=== PATIENT | female | born 1995 | race Caucasian/White ===

== ENCOUNTER 2022-06-02 21:18 | Inpatient (IN) | payer OTHER, SELFPAY ==
--- NOTE | ~2022-06-02 | US_ITS ---
EXAMINATION: US RETROPERITONEAL LIMITED (RENAL ONLY) CLINICAL INFORMATION: Right-sided flank pain. Fullness of the bilateral renal pelvises. COMPARISON: Previous CT of the abdomen and pelvis from earlier the same day TECHNIQUE: Grayscale and color imaging of the kidneys FINDINGS: RIGHT KIDNEY: 11.7 x 5.3 x 6.6 cm (SAG x AP x TRV). The kidney is normal in size, contour, and echogenicity. Renal cortical thickness is normal. No calculi or focal parenchymal lesions. No hydronephrosis. LEFT KIDNEY: 13.1 x 5.4 x 5.5 cm (SAG x AP x TRV). The kidney is normal in size, contour, and echogenicity. Renal cortical thickness is normal. No calculi or focal parenchymal lesions. No hydronephrosis. US/US renal BI IMPRESSION: Normal renal ultrasound.
--- NOTE | ~2022-06-02 | CT_ITS ---
EXAMINATION: CT ABDOMEN AND PELVIS WITHOUT CONTRAST CLINICAL INFORMATION: Diffuse abdominal pain COMPARISON: None TECHNIQUE: Multidetector volumetric imaging was performed from the superior aspect of the liver through the pubic symphysis. Sagittal and coronal reformatted images were obtained on the technologist's workstation. This CT examination was performed using dose optimization techniques as appropriate, variously including the following: *Automated exposure control *Adjustment of mA and/or kV according to patient size (this includes techniques or standardized protocols for targeted exams where dose is matched to indication/reason for exam; i.e. extremities or head) *Use of iterative reconstruction technique DLP: 658 mGy-cm FINDINGS: LUNG BASES: The visualized lung bases are unremarkable. LIVER, GALLBLADDER, AND BILIARY TREE: Focal fatty infiltration is noted near the falciform ligament. No biliary ductal dilatation is present. The gallbladder is unremarkable with no evidence of radiopaque gallstones, gallbladder wall thickening, or obvious pericholecystic inflammatory changes. PANCREAS: Unremarkable. SPLEEN: Borderline enlarged. ADRENAL GLANDS: Unremarkable. KIDNEYS AND URETERS: There is mild fullness of the bilateral renal pelvises, with no obstructing calculus seen. BLADDER: Partially distended with mild diffuse mural prominence. GASTROINTESTINAL TRACT: Suture line is present along the stomach. No evidence of bowel obstruction. No significant bowel wall thickening is seen. The appendix is unremarkable. No free fluid or free air is seen. ABDOMINAL WALL: No significant hernia is appreciated. LYMPH NODES: No significant lymphadenopathy is seen, though assessment is limited in the absence of intravenous contrast. VASCULAR: Unremarkable. PELVIC VISCERA: Unremarkable. OSSEOUS STRUCTURES: Mild endplate osteophytes in the lower lumbar spine. CT/CT abdomen pelvis wo IV con IMPRESSION: 1. Mild fullness of the bilateral renal pelvises, of uncertain clinical significance with no obstructing calculus seen. Bladder wall is mildly prominent, and cystitis cannot be excluded. Correlation with urinalysis is recommended. 2. Borderline splenomegaly. 3. No acute abnormality of the bowel.
--- NOTE | 2022-06-02 07:26 | ECG_ITS ---
Test Reason : cx pain /dizzyness Blood Pressure : / mmHG Vent. Rate : 105 BPM Atrial Rate : 105 BPM P-R Int : 142 ms QRS Dur : 068 ms QT Int : 336 ms P-R-T Axes : 056 041 032 degrees QTc Int : 444 ms Sinus tachycardia Otherwise normal ECG No previous ECGs available Referred By: Lucia Sandoval Electronically Signed By:VINNIE ANDERSON
[2022-06-02 22:37] VITALS: BP 140/80; PULSE 110; RESP 15; TEMP 38.3; O2SAT 100; BMI 30.7
[2022-06-03] VITALS (11 sets, daily range): BP systolic 112–133; BP diastolic 61–72; PULSE 84–106; RESP 14–22; TEMP 36.3–37.7; O2SAT 97–100
[2022-06-03 00:15] LABS: Hematocrit 28.1 % (37.0-47.0); Hemoglobin 8.1 g/dl (12.0-16.0); Mean Corpuscular HGB Conc 28.8 g/dl (31.0-35.0); Mean Corpuscular Volume 72.8 fL (80.0-98.0); Mean Platelet Volume 9.7 fL (9.4-12.3); Platelet Count 220 X10*3/uL (160-400); Red Blood Count 3.86 X10*6/uL (4.20-5.50); Red Cell Distribution Width 16.8 % (11.0-16.0); White Blood Count 10.4 X10*3/uL (4.8-10.8)
[2022-06-03 00:30] LABS: Alanine Aminotransferase 14 U/L (0-31); Alkaline Phosphatase 88 U/L (39-117); Anion Gap 16 (12-20); Aspartate Amino Transferase 18 U/L (5-31); Bilirubin Total 0.9 mg/dL (0.0-1.0); Blood Urea Nitrogen 7 mg/dL (9-16); Calcium 8.9 mg/dL (8.4-10.2); Carbon Dioxide 25 mmol/L (22-29); Chloride 102 mmol/L (96-108); Creatinine Clr Calc Pharmacy 121.3; Estimated Glomerular Filt Rate > 60; Glucose Random 85 mg/dL (60-115); Potassium 3.9 mmol/L (3.3-5.1); Sodium 139 mmol/L (135-145); Total Protein 6.4 g/dL (6.5-8.0)
--- NOTE | 2022-06-03 03:54 | ED.GENADULT ---
HPI - General Adult General Chief complaint: General Medical Stated complaint: abd pain Time Seen by Provider: 06/03/22 03:44 Source: patient Mode of arrival: ambulatory Limitations: no limitations History of Present Illness HPI narrative: Patient comes to the emergency room complaining of diffuse abdominal pain. Patient states it is worse in the left lower quadrant, radiating towards the back. Patient states she has had kidney stones in the past, states this feels different. Denies dysuria or hematuria. On arrival to the ED patient had a fever 100.9. Patient also complaining of diffuse body aches, fatigue, and generalized malaise. Patient denies chest pain. Patient states that she vomited couple of times, no diarrhea. Patient states that last week she had huge blood clots, she is not sure if she was and is caring or if this was a very heavy menstrual Related Data Allergies Allergy/AdvReac Type Severity Reaction Status Date / Time No Known Allergies Allergy Verified 06/02/22 22:41 Review of Systems Review of Systems: Constitutional : No Weight loss, complaining of fever, chills, fatigue and generalized malaise ENT/Mouth : No Hearing loss, No Ear Pain, No Nasal Congestion, No Sinus Pain, No Hoarseness, No sore throat, No Rhinorrhea, No Swallowing Difficulty Eyes: No Eye Pain, No Swelling, No Redness, No Foreign Body, No Discharge, No Vision Changes Cardiovascular : No Chest Pain, No SOB, No Dyspnea on Exertion, No Orthopnea, No Edema, No Palpitations Respiratory : No Cough, No Sputum, No Wheezing, No Smoke Exposure, No Dyspnea Gastrointestinal : Complaining of nausea and vomiting No Diarrhea, No Constipation, complaining of diffuse abdominal pain, worse in the left lower quadrant radiating towards the back Genitourinary : no irregular bleeding, No Dysuria, No Urinary Frequency, No Hematuria, No Urinary Incontinence, No Urgency, No Flank Pain, No Urinary Flow Changes, No Hesitancy Musculoskeletal : No joint pain, No Myalgias, No Joint Swelling Skin : No Skin Lesions, No rash Neuro : No Weakness, No Numbness, No Paresthesias, No Loss of Consciousness, No Dizziness, No Headache Psych : No Anxiety/Panic, No Depression, No SI/HI/AH/VH, No Social Issues, Heme/Lymph: No Bruising, No Bleeding,No Lymphadenopathy Endocrine : No Polyuria, No Polydipsia, No Temperature Intolerance PMFSH Past Medical History Medical History (Updated 06/03/22 @ 05:39 by Lucia Sandoval MD) Kidney stones Surgical History (Updated 06/03/22 @ 03:57 by Lucia Sandoval MD) H/O gastric bypass Social History Social History Advance Directives: No Advance Directives Information Provided: Yes Physical Exam ED Vital Signs: Vital Signs - 24 hr 06/02/22 22:37 06/03/22 02:06 06/03/22 05:18 Temperature 100.9 F H 100 F Pulse Rate 110 H 106 H 99 Respiratory Rate 15 16 16 Blood Pressure 140/80 H 133/72 124/70 Pulse Oximetry 100 98 100 Oxygen Delivery Method Room Air Room Air Room Air BMI result Body Mass Index 30.7 Const Other: Appearance: Alert. Oriented X3. Eyes: Pupils equal, round and reactive to light. ENT: Pharynx normal. Neck: Normal inspection. Neck supple. No lymph nodes noted. No crepitus CVS: Normal heart rate and rhythm. Pulses normal. Normal S1 and S2 Respiratory: No respiratory distress. Breath sounds normal. No Wheezing. No rales Abdomen: Soft , diffuse pain to palpation in all the quadrants, worse in the left lower quadrant and positive CVA tenderness on the left Skin: Skin warm and dry. Patient seems pale Normal skin turgor. Extremities: No lower extremity edema. No Lacerations. No Rash Neuro: Oriented X 3. No motor deficit. No sensory deficit. Moving all extremities. No slurred speech. CN 2 through 12 grossly intact Psych: calm, cooperative, normal affect Course Course Course Narrative: Patient has a fever. White blood cell count 10.4 lactic acid and blood cultures are pending. Patient is receiving IV fluids, Zofran, morphine. Urinalysis, LFTs, lipase hCG CT scan pending At this time, 518, the patient's urine returned. Patient has a urinary tract infection. Patient is receiving IV fluids based on ideal weight of 55 kg, patient is obese. Patient also being treated with Levaquin. CT scan pending. Clinically, patient has pyelonephritis. Patient's white blood cell count within normal limits, lactic acid normal, blood pressure normal, sepsis not suspected. It was noted that patient has a hemoglobin of 8.1 patient states that she has been feeling very tired, short of breath, dizzy, not herself since she had that heavy menstrual period. At this time, patient has no vaginal bleeding. Since patient is fairly symptomatic. Patient would likely benefit from 1 unit of blood. Patient agrees and signed a consent. I discussed the patient with Dr. Danielle, pt being admitted Medical Decision Making Lab Data Result diagrams: 06/03/22 00:08 06/03/22 00:08 Labs: Lab Results 06/03/22 06/03/22 06/03/22 Range/Units 00:08 00:08 03:59 WBC 10.4 (4.8-10.8) X10*3/uL RBC 3.86 L (4.20-5.50) X10*6/uL Hgb 8.1 L (12.0-16.0) g/dl Hct 28.1 L (37.0-47.0) % MCV 72.8 L (80.0-98.0) fL MCH 21.0 L (27.0-33.0) pg MCHC 28.8 L (31.0-35.0) g/dl RDW 16.8 H (11.0-16.0) % Plt Count 220 (160-400) X10*3/uL MPV 9.7 (9.4-12.3) fL Absolute Nucleated RBC 0.000 (0.0-0.012) X10*3/uL Nucleated RBC % (auto) 0.0 (0.0-0.2) /100WBC Sodium 139 (135-145) mmol/L Potassium 3.9 (3.3-5.1) mmol/L Chloride 102 (96-108) mmol/L Carbon Dioxide 25 (22-29) mmol/L Anion Gap 16 (12-20) BUN 7 L (9-16) mg/dL Creatinine 0.77 (0.5-1.4) mg/dL Estim Creat Clear Calc 121.3 Estimated GFR > 60 Random Glucose 85 (60-115) mg/dL Lactic Acid (0.5-2.0) mmol/L Calcium 8.9 (8.4-10.2) mg/dL Total Bilirubin 0.9 (0.0-1.0) mg/dL Direct Bilirubin 0.4 (0.0-0.5) mg/dL AST 18 (5-31) U/L ALT 14 (0-31) U/L Alkaline Phosphatase 88 (39-117) U/L Total Protein 6.4 L (6.5-8.0) g/dL Albumin 4.0 (3.5-5.0) g/dL Lipase 11 (8-78) U/L Beta HCG, Quant < 2 mIU/mL Urine Color Urine Appearance Urine pH (5.0-9.0) Ur Specific [place] (1.005-1.025) Urine Protein (Neg-Trace) mg/dL Urine Glucose (UA) (Negative) mg/dL Urine Ketones (Negative) mg/dL Urine Blood (Negative) Urine Nitrite (Negative) Ur Leukocyte Esterase (Negative) Urine RBC (0-2) /HPF Urine WBC (0-5) /HPF Ur Squamous Epith Cells (0-2) /HPF Urine Bacteria (None Seen) Hyaline Casts Urine Test COVID-19 ([facility]) Negative (Negative) COVID-19 Clin Com See Note 06/03/22 06/03/22 06/03/22 Range/Units 04:03 04:03 04:03 WBC (4.8-10.8) X10*3/uL RBC (4.20-5.50) X10*6/uL Hgb (12.0-16.0) g/dl Hct (37.0-47.0) % MCV (80.0-98.0) fL MCH (27.0-33.0) pg MCHC (31.0-35.0) g/dl RDW (11.0-16.0) % Plt Count (160-400) X10*3/uL MPV (9.4-12.3) fL Absolute Nucleated RBC (0.0-0.012) X10*3/uL Nucleated RBC % (auto) (0.0-0.2) /100WBC Sodium (135-145) mmol/L Potassium (3.3-5.1) mmol/L Chloride (96-108) mmol/L Carbon Dioxide (22-29) mmol/L Anion Gap (12-20) BUN (9-16) mg/dL Creatinine (0.5-1.4) mg/dL Estim Creat Clear Calc Estimated GFR Random Glucose (60-115) mg/dL Lactic Acid 0.7 (0.5-2.0) mmol/L Calcium (8.4-10.2) mg/dL Total Bilirubin (0.0-1.0) mg/dL Direct Bilirubin (0.0-0.5) mg/dL AST (5-31) U/L ALT (0-31) U/L Alkaline Phosphatase (39-117) U/L Total Protein (6.5-8.0) g/dL Albumin (3.5-5.0) g/dL Lipase (8-78) U/L Beta HCG, Quant mIU/mL Urine Color Yellow Urine Appearance Cloudy Urine pH 6.0 (5.0-9.0) Ur Specific [place] 1.020 (1.005-1.025) Urine Protein 30 (1+) H (Neg-Trace) mg/dL Urine Glucose (UA) Negative (Negative) mg/dL Urine Ketones 40 (Negative) mg/dL Urine Blood Moderate (2+) H (Negative) Urine Nitrite Positive H (Negative) Ur Leukocyte Esterase Large (3+) H (Negative) Urine RBC 6-10 H (0-2) /HPF Urine WBC >50 H (0-5) /HPF Ur Squamous Epith Cells 3-5 (0-2) /HPF Urine Bacteria 3+ (None Seen) Hyaline Casts Not Reportable Urine Test Cancelled COVID-19 ([facility]) (Negative) COVID-19 Clin Com Imaging Data CT scan - abdomen: Radiologist's impression: FINDINGS: LUNG BASES: The visualized lung bases are unremarkable.? LIVER, GALLBLADDER, AND BILIARY TREE: Focal fatty infiltration is noted near the falciform ligament. No biliary ductal dilatation is present. The gallbladder is unremarkable with no evidence of radiopaque gallstones, gallbladder wall thickening, or obvious pericholecystic inflammatory changes.? PANCREAS: Unremarkable.? SPLEEN: Borderline enlarged.? ADRENAL GLANDS: Unremarkable.? KIDNEYS AND URETERS: There is mild fullness of the bilateral renal pelvises, with no obstructing calculus seen. BLADDER: Partially distended with mild diffuse mural prominence.? GASTROINTESTINAL TRACT: Suture line is present along the stomach. No evidence of bowel obstruction. No significant bowel wall thickening is seen. The appendix is unremarkable. No free fluid or free air is seen. ABDOMINAL WALL: No significant hernia is appreciated.? LYMPH NODES: No significant lymphadenopathy is seen, though assessment is limited in the absence of intravenous contrast. VASCULAR: Unremarkable. PELVIC VISCERA: Unremarkable.? OSSEOUS STRUCTURES: Mild endplate osteophytes in the lower lumbar spine.? CT/CT abdomen pelvis wo IV con IMPRESSION: 1.? Mild fullness of the bilateral renal pelvises, of uncertain clinical significance with no obstructing calculus seen. Bladder wall is mildly prominent, and cystitis cannot be excluded. Correlation with urinalysis is recommended. 2.? Borderline splenomegaly. 3.? No acute abnormality of the bowel. ? Critical Care Time Critical Care Time Critical Care Time: Yes Total Critical Care Time: 60 Attestation: I have personally provided critical care time. Time includes review of lab data, radiology results, discussion with consultants, and monitoring for potential decompensation. Intervention performed as documented. Discharge Plan Discharge Clinical Impression: Pyelonephritis, Anemia Patient Disposition: Admitted As Inpatient
[2022-06-03 04:09] LABS: Bilirubin Direct 0.4 mg/dL (0.0-0.5); Lipase 11 U/L (8-78)
[2022-06-03 04:15] LABS: HCG Quantitative < 2 mIU/mL
--- NOTE | 2022-06-03 04:22 | PC.NURSE ---
pt taken to ct.
[2022-06-03 04:27] LABS: Appearance Urine Cloudy; Color Urine Yellow; Glucose Urine UA Negative (Negative); Leukocyte Esterase Urine Large (3+) (Negative); Nitrite Urine Positive (Negative); Urine Blood Moderate (2+) (Negative); Urine Ketones 40 mg/dL (Negative); Urine Protein 30 (1+) mg/dL (Neg-Trace)
[2022-06-03 04:35] LABS: Lactic Acid 0.7 mmol/L (0.5-2.0)
[2022-06-03 04:38] LABS: COVID-19 Test Negative (Negative); IDNOW Serial# 16C4AD1C
[2022-06-03 04:43] LABS: Bacteria Urine 3+ (None Seen); UACC Culture Trigger YES; WBC Urine >50 /HPF (0-5)
--- NOTE | 2022-06-03 05:32 | PC.NURSE ---
consent for transfusion of blood signed by pt. pt is alert and oriented x4.
[2022-06-03] MEDS: ondansetron HCL 4 MG/2 ML VIAL IVPUSH ×3 (05:57→19:51)
[2022-06-03] MEDS: Morphine Sulfate 4 MG/ML CARTRIDGE IVPUSH (05:57)
[2022-06-03] MEDS: 0.9 % Sodium Chloride 2,000 ML 999 ML IVCONT (05:58)
[2022-06-03] MEDS: levoFLOXacin/D5W 500 MG/100 ML PIGGYBACK 100 MG IV (06:09)
--- NOTE | 2022-06-03 06:13 | PM.IMHP ---
History of Present Illness Date of Service: 06/03/22 Chief Complaint: N/V abd pain 26-year-old female with past medical history of gastric sleeve surgery presents the hospital with complaints of right lower abdomen pain radiating to the back, as well as nausea vomiting, urinary frequency. Patient reports her symptoms started the day prior, the pain is sent out of 10, radiating to the groin, associated with significant nausea vomiting, loss of appetite. She has not been able to keep anything down. She has urinary frequency for the past 2 days. She has also experienced heavy bleeding during her menstruation about a week ago associated with large sized clots. Reports a history of heavy menstruation that improved after she had nexplanon placed and removed. She has dizziness, no change in vision, no headache, some SOB, reports palpitations with no chest pain, she has no abdominal pain otherwise, no diarrhea constipation, no lower extremity edema. On arrival to the ED patient hemodynamically stable with a temp of a 100.9 degrees, heart rate of 110, Labs are significant for WBC count of 10.4, hemoglobin of 8.1, medical of 28.1, MCV of 72.8, UA that is positive for nitrites, leukocyte Estrace Abdomen pelvis CT shows mild fullness of the bilateral renal pelvis sees cystitis, Patient receiving 1 unit of PRBC as well as antibiotics will be admitted for further management Review of Systems Review of Systems: Yes all other systems are reviewed and are negative [facility] Medical History (Updated 06/03/22 @ 06:19 by Sarah Keane MD) Kidney stones Family History (Updated 06/03/22 @ 06:17 by Sarah Keane MD) Other No family history of coronary artery disease Surgical History (Updated 06/03/22 @ 06:17 by Sarah Keane MD) H/O gastric bypass Social History (Updated 06/03/22 @ 06:18 by Sarah Keane MD) Alcohol intake: current Patient Tobacco Use Status: Never used Tobacco Substance Use Type: Marijuana Advance Directives: No Advance Directives Information Provided: Yes Meds Allergies Allergy/AdvReac Type Severity Reaction Status Date / Time No Known Allergies Allergy Verified 06/02/22 22:41 Active Medications: Current Medications Levofloxacin (Levaquin) 500 mg in 100 mls @ 100 mls/hr IV ONCE ONE Stop: 06/03/22 06:17 Last Admin: 06/03/22 06:09 Dose: 100 mls/hr Sodium Chloride (Ns) 1,000 mls @ 999 mls/hr IVCONT .Q1H1M ONE Stop: 06/03/22 06:19 Last Admin: 06/03/22 06:09 Dose: Not Given Physical Exam Vital Signs and Narrative: Vital Signs: Last Vital Signs Temp 100 F 06/03/22 02:06 Pulse 99 06/03/22 05:18 Resp 16 06/03/22 05:18 BP 124/70 06/03/22 05:18 Pulse Ox 100 06/03/22 05:18 O2 Del Method 06/03/22 05:18 BMI result Body Mass Index 30.7 Const: General: cooperative and no acute distress Orientation/consciousness: patient oriented x3 Eyes: General: appearance normal, both eyes and all related structures Pupils: Equal, round and reactive pupils present Resp: Effort & Inspection: normal respiratory effort Auscultation: clear to auscultation bilaterally Cardio: Rate: regular rate Rhythm: regular rhythm GI: Other: Right lower quadrant tenderness no rebound or guarding Palpation (GI): Soft to palpation Auscultation: normal bowel sounds : Other: Right CVA tenderness Skin: General skin exam: no rashes or lesions noted Neuro: General: patient oriented x3 Cranial nerves: Yes Equal, round and reactive pupils present Cognition (Neuro): normal cognition Extrem: General: Yes normal to inspection and Yes no pedal edema Results Labs CBC and Chem 7: 06/03/22 00:08 06/03/22 00:08 Labs: Laboratory Results - last 24 hr 06/03/22 06/03/22 06/03/22 00:08 00:08 03:59 MCV 72.8 L MCH 21.0 L MCHC 28.8 L RDW 16.8 H Plt Count 220 MPV 9.7 Absolute Nucleated RBC 0.000 Nucleated RBC % (auto) 0.0 Anion Gap 16 Estim Creat Clear Calc 121.3 Estimated GFR > 60 Random Glucose 85 Lactic Acid Calcium 8.9 Total Bilirubin 0.9 Direct Bilirubin 0.4 AST 18 ALT 14 Alkaline Phosphatase 88 Total Protein 6.4 L Albumin 4.0 Lipase 11 Beta HCG, Quant < 2 Urine Color Urine Appearance Urine pH Ur Specific [place] Urine Protein Urine Glucose (UA) Urine Ketones Urine Blood Urine Nitrite Ur Leukocyte Esterase Urine RBC Urine WBC Ur Squamous Epith Cells Urine Bacteria Hyaline Casts Urine Test COVID-19 ([facility]) Negative COVID-19 Clin Com See Note Crossmatch 06/03/22 06/03/22 06/03/22 04:03 04:03 04:03 MCV MCH MCHC RDW Plt Count MPV Absolute Nucleated RBC Nucleated RBC % (auto) Anion Gap Estim Creat Clear Calc Estimated GFR Random Glucose Lactic Acid 0.7 Calcium Total Bilirubin Direct Bilirubin AST ALT Alkaline Phosphatase Total Protein Albumin Lipase Beta HCG, Quant Urine Color Yellow Urine Appearance Cloudy Urine pH 6.0 Ur Specific [place] 1.020 Urine Protein 30 (1+) H Urine Glucose (UA) Negative Urine Ketones 40 Urine Blood Moderate (2+) H Urine Nitrite Positive H Ur Leukocyte Esterase Large (3+) H Urine RBC 6-10 H Urine WBC >50 H Ur Squamous Epith Cells 3-5 Urine Bacteria 3+ Hyaline Casts Not Reportable Urine Test Cancelled COVID-19 ([facility]) COVID-19 Clin Com Crossmatch 06/03/22 05:54 MCV MCH MCHC RDW Plt Count MPV Absolute Nucleated RBC Nucleated RBC % (auto) Anion Gap Estim Creat Clear Calc Estimated GFR Random Glucose Lactic Acid Calcium Total Bilirubin Direct Bilirubin AST ALT Alkaline Phosphatase Total Protein Albumin Lipase Beta HCG, Quant Urine Color Urine Appearance Urine pH Ur Specific [place] Urine Protein Urine Glucose (UA) Urine Ketones Urine Blood Urine Nitrite Ur Leukocyte Esterase Urine RBC Urine WBC Ur Squamous Epith Cells Urine Bacteria Hyaline Casts Urine Test COVID-19 ([facility]) COVID-19 Clin Com Crossmatch See Detail Imaging Radiologist's Impressions: Impressions Abdomen/Pelvis CT 06/03/22 04:30 IMPRESSION: 1. Mild fullness of the bilateral renal pelvises, of uncertain clinical significance with no obstructing calculus seen. Bladder wall is mildly prominent, and cystitis cannot be excluded. Correlation with urinalysis is recommended. 2. Borderline splenomegaly. 3. No acute abnormality of the bowel. Assessment and Plan (1) Sepsis: Status: Acute (2) Pyelonephritis: Status: Acute (3) Microcytic anemia: Status: Acute Plan 26-year-old female with past medical history of obesity status post gastric sleeve bypass presents to the hospital with complaints of flank pain found to have pyelonephritis # sepsis - source urine - febrile, tachycardic - lactic acid normal - will treat with IV antibiotics - follow cultures # acute pyelonephritis - UA positive - no evidence of acute kidney stones on CT abdomen - will treat with IV antibiotics - follow cultures # acute on chronic microcytic anemia - patient reports history of heavy menstruation with no baseline hemoglobin on EMR - symptomatic with dizziness, tachypnea, tachycardia, - receiving 1 unit of PRBC - will follow CBC DVT prophylaxis: SCDs Given need for IV antibiotics for sepsis and pyelonephritis patient will require minimum 2 night hospital stay for further management and monitoring Quality Stroke Does the patient have a stroke diagnosis?: No VTE Prior VTE?: No VTE Risk Level:: Medical - low VTE Device Contraindication: N/A - Device Ordered VTE Drug Contraindication: Treatment Not Indicated
[2022-06-03] MEDS: oxyCODONE HCl Immed Release 5 MG TABLET PO ×3 (08:45→23:33)
[2022-06-03] MEDS: Acetaminophen 325 MG TABLET 650 MG PO (08:45)
--- NOTE | 2022-06-03 08:54 | PHA.MEDREC ---
Pharmacy Consult ? Medication Reconciliation Pharmacy has completed the medication reconciliation.
--- NOTE | 2022-06-03 11:23 | PC.NURSE ---
INTRODUCED SELF TO PT. TRANSFUSION ENDED WITH NO SXS REACTION. PT C/O BACK PAIN UNCONTROLLED WITH PRNS, AWAITING NEW ORDERS PER PREVIOUS RN. IVF AND ABX HUNG, SECOND IV SITE REMOVED PER PT REQUEST.
[2022-06-03] MEDS: cefTRIAXone sodium 1 GM in 0.9 % Sodium Chloride 50 ML IV (11:25)
[2022-06-03] MEDS: Lactated Ringers 1,000 ML 100 ML IVCONT (11:25)
--- NOTE | 2022-06-03 11:37 | PM.EVENT ---
Event Note Date of Service: 06/03/22 Event Note: complaining of lower back pain, no fevers no chills, denies chest pain or palpitation examination awake alert in no distress abdomen soft mild right lower quadrant tenderness with deep palpation extremities no edema assessment plan 26-year-old female with history of gastric sleeve surgery presented to [facility] with right lower abdominal pain radiating to back associated with nausea vomiting and urinary frequency of 2 days duration patient in the ER noted to be febrile with temp 100.9 degrees heart rate 110 UA positive for leukocyte esterase and nitrates abdominal CT showed mild fullness of bilateral renal pelvis likely related to cystitis CBC showed hematocrit of 28.1 acute pyelonephritis continue IV antibiotics, follow urine and blood cultures oxycodone for pain/ DC IV fluid acute on chronic macrocytic anemia likely due to heavy periods 1 unit of packed RBC given, follow CBC patient is scheduled to be seen by OBGYN as outpatient
--- NOTE | 2022-06-03 13:34 | MHC.CM.PN ---
PATIENT LIVES WITH HER BOYFRIEND [facility] DENIES USE OF DME OR RECEIVING HOME SERVICES [facility] X2 PCP FROM [facility] [place] NO HCP, EDUCATED BUT DECLINED TO COMPLETE AT THIS TIME BOYFRIEND WILL TRANSPORT. D/C PLAN: HOME SELF-CARE
[2022-06-03] MEDS: Ibuprofen 400 MG TABLET PO (13:40)
--- NOTE | 2022-06-03 15:04 | ECG_ITS ---
Test Reason : repeat Blood Pressure : / mmHG Vent. Rate : 075 BPM Atrial Rate : 075 BPM P-R Int : 156 ms QRS Dur : 070 ms QT Int : 398 ms P-R-T Axes : 041 034 027 degrees QTc Int : 444 ms Normal sinus rhythm Normal ECG When compared with ECG of 02-JUN-2022 21:59, Heart rate has decreased Referred By: Lucia Sandoval Electronically Signed By:VINNIE ANDERSON
[2022-06-03] MEDS: Morphine Sulfate 4 MG/ML CARTRIDGE 3 MG IVPUSH ×2 (16:51→21:09)
--- NOTE | 2022-06-03 19:14 | PC.NURSE ---
report received from [email or web address] RN
--- NOTE | 2022-06-03 19:53 | PC.NURSE ---
pt resting comfortably on stretcher. zofran given per MD orders for nausea. call [facility] within reach. will continue to monitor
[2022-06-04] VITALS (7 sets, daily range): BP systolic 102–140; BP diastolic 51–70; PULSE 78–102; RESP 16–18; TEMP 36.1–37.6; O2SAT 98–100
[2022-06-04] MEDS: Morphine Sulfate 4 MG/ML CARTRIDGE 3 MG IVPUSH ×3 (02:10→21:59)
[2022-06-04] MEDS: 0.9 % Sodium Chloride Flush 3 ML SYRINGE IVFLUSH ×3 (02:17→15:34)
[2022-06-04 06:56] LABS: Hematocrit 28.7 % (37.0-47.0); Hemoglobin 8.4 g/dl (12.0-16.0); Mean Corpuscular HGB Conc 29.3 g/dl (31.0-35.0); Mean Corpuscular Hemoglobin 21.8 pg (27.0-33.0); Mean Corpuscular Volume 74.5 fL (80.0-98.0); Platelet Count 191 X10*3/uL (160-400); Red Blood Count 3.85 X10*6/uL (4.20-5.50); Red Cell Distribution Width 16.8 % (11.0-16.0); White Blood Count 10.8 X10*3/uL (4.8-10.8)
[2022-06-04 07:19] LABS: Anion Gap 12 (12-20); Blood Urea Nitrogen 5 mg/dL (9-16); Calcium 8.4 mg/dL (8.4-10.2); Carbon Dioxide 27 mmol/L (22-29); Chloride 102 mmol/L (96-108); Creatinine Clr Calc Pharmacy 145.9; Estimated Glomerular Filt Rate > 60; Glucose Random 77 mg/dL (60-115); Potassium 4.2 mmol/L (3.3-5.1); Sodium 137 mmol/L (135-145)
[2022-06-04] MEDS: cefTRIAXone sodium 1 GM in 0.9 % Sodium Chloride 50 ML IV (07:54)
[2022-06-04] MEDS: oxyCODONE HCl Immed Release 5 MG TABLET PO ×2 (07:54→13:50)
[2022-06-04] MEDS: Acetaminophen 325 MG TABLET 650 MG PO ×2 (07:57→13:50)
[2022-06-04 07:58] LABS: Band Neutrophils Percent 0 % (3-5); Lymphocytes Absolute Manual 0.6 X10*3/uL (1.2-4.9); Lymphocytes Percent Manual 6 % (20-40); Monocytes Absolute Manual 0.9 X10*3/uL (0.1-1.2); Monocytes Percent Manual 8 % (2-11); Neutrophils Absolute Manual 9.3 X10*3/uL (2.0-8.3); Neutrophils Percent Manual 86 % (45-73)
[2022-06-04 07:59] LABS: Hypochromasia 1+ (5-14) /OIF; Microcytosis 1+ (5-14) /OIF; Ovalocytes 1+ (5-14) /OIF; Platelet Estimate NORMAL (NORMAL); Platelet Morphology Comment NORM; RBC Morphology NOTED; Tear Drop Cells 1+ (0-2) /OIF
--- NOTE | 2022-06-04 11:33 | PC.NURSE ---
Pt reports PRNs are not effective for pain. Contact made to hospitalist-ibuprofen to be ordered.
--- NOTE | 2022-06-04 12:29 | P.PNIM_ITS ---
Subjective Subjective Date of Service: 06/04/22 Interval History: Feeling better, less flank pain, complaining of on and off chills, noted to have low-grade fever overnight, denies nausea, vomiting, denies lightheadedness, dizziness, no other acute issues overnight ,tolerating diet, requesting for scheduled pain medicine- Review of Systems Skin no rash Respiratory no cough, no shortness of breath CVS no chest pain Review of Systems: Yes all other systems are reviewed and are negative Physical Exam Vital Signs: Vital Signs: Last Vital Signs Temp 98.1 F 06/04/22 09:14 Pulse 94 06/04/22 07:31 Resp 16 06/04/22 07:31 BP 113/59 L 06/04/22 07:31 Pulse Ox 99 06/04/22 07:31 O2 Del Method 06/04/22 07:31 BMI result Body Mass Index 30.7 Const: Other: General awake alert x3, resting comfortably in no acute distress. Anicteric sclera Neck no JVD. CVS regular rate rhythm, Respiratory lungs clear to auscultation, no respiratory distress, no wheeze, no rhonchi. Gastrointestinal abdomen soft, nontender, bowel sounds audible, no no guarding , no rigidity. Extremities no edema. Back no CVA tenderness, mild right flank tenderness to palpation Neuro nonfocal Skin no rash Psych appropriate affect Objective Data Active Medications Acetaminophen (Acetaminophen 325 Mg Tablet) 650 mg PO Q6H PRN PRN Reason: Pain, Mild (Pain Scale 1-3) Last Admin: 06/04/22 07:57 Dose: 650 mg Documented By: ARLEEN Docusate Sodium (Docusate Sodium 100 Mg Capsule) 100 mg PO DAILY PRN PRN Reason: Constipation Ceftriaxone Sodium 1 gm/ (Sodium Chloride) 50 mls @ 100 mls/hr IV Q24H YOHANA Last Infusion: 06/04/22 08:35 Dose: 0 mls/hr Documented By: ARLEEN Morphine Sulfate (Morphine Sulfate 4 Mg/Ml Cartridge) 3 mg IVPUSH Q4H PRN; Protocol PRN Reason: Pain, Severe (Pain Scale 7-10) Last Admin: 06/04/22 02:10 Dose: 3 mg Documented By: HEIDE Ondansetron HCl (Ondansetron Hcl 4 Mg/2 Ml Vial) 4 mg IVPUSH Q8H PRN PRN Reason: Nausea and Vomiting Last Admin: 06/03/22 13:47 Dose: 4 mg Documented By: LION Oxycodone HCl (Oxycodone Hcl Immed Release 5 Mg Tablet) 5 mg PO Q6H PRN PRN Reason: Pain, Severe (Pain Scale 7-10) Last Admin: 06/04/22 07:54 Dose: 5 mg Documented By: ARLEEN Sodium Chloride (0.9 % Sodium Chloride Flush 3 Ml Syringe) 3 ml IVFLUSH QSHIFT YOHANA Last Admin: 06/04/22 08:36 Dose: 3 ml Documented By: ARLEEN Labs CBC & Chem 7: 06/04/22 06:27 06/04/22 06:27 Labs: Laboratory Results - last 24 hr 06/04/22 06/04/22 06:27 06:27 MCV 74.5 L MCH 21.8 L MCHC 29.3 L RDW 16.8 H Plt Count 191 MPV 10.0 Immature Gran % (Auto) Cancelled Neut % (Auto) Cancelled Lymph % (Auto) Cancelled [place] % (Auto) Cancelled Eos % (Auto) Cancelled Baso % (Auto) Cancelled Lymph # (Auto) Cancelled [place] # (Auto) Cancelled Eos # (Auto) Cancelled Baso # (Auto) Cancelled Abs Immat Gran (auto) Cancelled Absolute Neuts (auto) Cancelled Absolute Nucleated RBC 0.000 Nucleated RBC % (auto) 0.0 Neutrophils % (Manual) 86 H Band Neutrophils % 0 L Lymphocytes % (Manual) 6 L Monocytes % (Manual) 8 Abs Neuts (Manual) 9.3 H Lymphocytes # (Manual) 0.6 L Monocytes # (Manual) 0.9 Platelet Estimate NORMAL Plt Morphology Comment NORM RBC Morphology NOTED Hypochromasia 1+ (5-14) Microcytosis 1+ (5-14) Tear Drop Cells 1+ (0-2) Ovalocytes 1+ (5-14) Anion Gap 12 Estim Creat Clear Calc 145.9 Estimated GFR > 60 Random Glucose 77 Calcium 8.4 Microbiology Microbiology Results: Microbiology 06/03/22 05:00 Blood Culture - Preliminary Blood - Arterial No growth after 24 hours. 06/03/22 04:59 Blood Culture - Preliminary Blood - Arterial No growth after 24 hours. Assessment and Plan (1) Sepsis: Status: Acute (2) Microcytic anemia: Status: Acute (3) Pyelonephritis: Status: Acute Plan 26-year-old female with history of gastric sleeve surgery presented to [facility] pranay with right lower abdominal pain radiating to back associated with nausea vomiting and urinary frequency of 2 days duration patient in the ER noted to be febrile with temp 100.9 degrees heart rate 110 UA positive for leukocyte esterase and nitrates abdominal CT showed mild fullness of bilateral renal pelvis likely related to cystitis CBC showed hematocrit of 28.1 ?Sepsis due to acute pyelonephritis, patient meets sepsis criteria due to fever/tachycardia Fever resolved persistent mild tachycardia, normal WBC ?continue IV ceftriaxone day 2, blood cultures negative urine culture pending Renal ultrasound showed no hydronephrosis no calculi, CT abdomen showed mild foot numbness of bilateral renal pelvis of uncertain clinical significance with no obstructing calculus. ?Will place on scheduled ibuprofen and as needed oxycodone for pain ?acute on chronic macrocytic anemia likely due to heavy periods 1 unit of packed RBC given, repeat CBC is stable, patient is scheduled to be seen by OBGYN as outpatient DVT prophylaxis: SCDs Patient will need continued inpatient hospitalization for IV antibiotics related to sepsis due to acute pyelonephritis with persistent fevers chills Quality Stroke Does the patient have a stroke diagnosis?: No VTE Prior VTE?: No VTE Risk Level:: Medical - low VTE Device Contraindication: N/A - Device Ordered VTE Drug Contraindication: Treatment Not Indicated
--- NOTE | 2022-06-04 12:41 | PC.NURSE ---
Pt verbally aggressive with this [facility]ha underwriter regarding scheduling of pain medications, sounds in environment, and limited availability of staff. Pt provided education regarding Q6hr schedule. per pt: I don't want to go back and forth with you and your attitude. I'm in pain and don't bother coming back in my room with my pain meds. Pt was updated regarding contact to Dr. Navarro, plan of care, need to await new orders for adequate pain management x 2 since 10am. Pt did not acknowledge education and refused to verbally respond.
--- NOTE | 2022-06-04 13:27 | PC.NURSE ---
Per Dr. Nobles-IV pain med to only be used for rule of exceptional pain
[2022-06-04] MEDS: Ibuprofen 400 MG TABLET PO (15:32)
[2022-06-04] MEDS: ondansetron HCL 4 MG/2 ML VIAL IVPUSH (21:59)
[2022-06-05] MEDS: oxyCODONE HCl Immed Release 5 MG TABLET PO (00:18)
[2022-06-05] MEDS: Melatonin 3 MG TABLET 6 MG PO (01:17)
[2022-06-05] MEDS: 0.9 % Sodium Chloride Flush 3 ML SYRINGE IVFLUSH (01:17)
--- NOTE | 2022-06-05 08:25 | MHC.CM.PN ---
PT BEING DISCHARGED HOME TODAY WITH NO SERVICES PT TO ARRANGE TRANSPORT
--- NOTE | 2022-06-05 09:02 | PM.DS ---
DS: Providers Provider Date of Service: 06/05/22 Date of admission: 06/03/22 06:12 Primary care physician: Unknown Physician DS: Diagnosis Discharge Diagnosis (1) Sepsis: Status: Acute (2) Microcytic anemia: Status: Acute (3) Pyelonephritis: Status: Acute DS: Summary Hospital Course Hospital Course: Chief Complaint: N/V abd pain 26-year-old female with past medical history of gastric sleeve surgery presents the hospital with complaints of right lower abdomen pain radiating to the back, as well as nausea vomiting, urinary frequency.? Patient reports her symptoms started the day prior, the pain is sent out of 10, radiating to the groin, associated with significant nausea vomiting, loss of appetite.? She has not been able to keep anything down.? She has urinary frequency for the past 2 days.? She has also experienced heavy bleeding during her menstruation about a week ago associated with large sized clots.? Reports a history of heavy menstruation that improved after she had nexplanon placed and removed. She has dizziness, no change in vision, no headache, some SOB, reports palpitations with no chest pain, she has no abdominal pain otherwise, no diarrhea constipation, no lower extremity edema.? On arrival to the ED patient hemodynamically stable with a temp of a 100.9 degrees, heart rate of 110, Labs are significant for WBC count of 10.4, hemoglobin of 8.1, medical of 28.1, MCV of 72.8, UA that is positive for nitrites, leukocyte Estrace Abdomen pelvis CT shows mild fullness of the bilateral renal pelvis sees cystitis, Patient receiving 1 unit of PRBC as well as antibiotics will be admitted for further management Hospital course 26-year-old female with history of gastric sleeve surgery presented to [facility] with right lower abdominal pain radiating to back associated with nausea vomiting and urinary frequency of 2 days duration patient in the ER noted to be febrile with temp 100.9 degrees heart rate 110 UA positive for leukocyte esterase and nitrates abdominal CT showed mild fullness of bilateral renal pelvis likely related to cystitis CBC showed hematocrit of 28.1 Patient admitted with a diagnosis of?Sepsis due to acute pyelonephritis, she met sepsis criteria due to fever and tachycardia, she was placed on IV ceftriaxone blood cultures x2 came back negative urine culture grew E coli sensitive to ceftriaxone all features of sepsis sepsis resolved patient abdominal pain has significantly improved therefore she is being discharged home on Ceftin 250 mg twice daily for 5 more days for a total 7 day treatment Renal ultrasound showed no hydronephrosis no calculi, CT abdomen showed mild fullness of bilateral renal pelvis of uncertain clinical significance with no obstructing calculus. Recommend to continue Tylenol/Advil for pain acute on chronic macrocytic anemia likely due to heavy periods 1 unit of packed RBC given, repeat CBC is stable, patient is scheduled to be seen by OBGYN as outpatient Time Spent with Patient Time attestation: Total time spent providing and/or coordinating discharge services: Discharge coordination time: Greater than 30 minutes Quality: Safe Use of Opioids Does Pt have an Active Cancer Diagnosis on the Problem List?: No Quality: Stroke Does the patient have a stroke diagnosis?: No Physical Exam Vital Signs: Vital Signs: Last Vital Signs Temp 96.9 F 06/04/22 23:53 Pulse 78 06/04/22 23:53 Resp 18 06/04/22 23:53 BP 107/58 L 06/04/22 23:53 Pulse Ox 100 06/04/22 23:53 O2 Del Method 06/04/22 23:53 BMI result Body Mass Index 30.7 Const: Other: General awake alert x3, resting comfortably in no acute distress. Anicteric sclera? Neck? no JVD. CVS? regular rate rhythm, Respiratory lungs clear to auscultation, no respiratory distress, no wheeze, no rhonchi. Gastrointestinal abdomen soft, nontender, bowel sounds audible, no guarding , no rigidity. Extremities no edema. Back no CVA tenderness Neuro nonfocal Skin no rash Psych appropriate affect DS: Data Data Completed and Pending Labs on day of discharge: Preliminary micro results at discharge 06/03/22 04:59 Blood Culture - Preliminary Blood - Arterial No growth after 48 hours. 06/03/22 05:00 Blood Culture - Preliminary Blood - Arterial No growth after 48 hours. Discharge Plan Discharge Patient Disposition: Home, Self-Care Discharge Diagnosis: Sepsis due to acute pyelo Acute on chronic microcytic anemia Referrals: Physician,Unknown J [Primary Care Provider] - 1 Week Discharge Medications: New cefuroxime axetil 250 mg tablet 250 mg PO BID Qty: 10 0RF Discharge Orders: Discharge Order (Routine); Ordered 06/05/22 Ordered By: Ghanshyam Nobles Diet: Advance to usual diet Activity on Discharge: As tolerated Stand Alone Forms: Patient Portal Discharge page, Work/School Release Care Plan Goals: Take by mouth antibiotic as prescribed, return to check recurrent symptoms of abdominal pain nausea vomiting or high-grade fever. Health Concerns: Anemia Plan of Treatment: Outpatient follow-up with primary care physician and OBGYN for heavy periods Assessment: As per discharge summary
== END 2022-06-05 09:08 | disposition home or self-care (01) | DRG 720 ==
LOC: HO.ED 06-03 06:11 → HO.EDOVER 06-03 06:17
PROVIDERS: Admitting Provider Internal Medicine; Emergency Provider Emergency Medicine; Visit Provider Hospitalist
DX: A41.9 Sepsis, unspecified organism (principal); D50.0 Iron deficiency anemia secondary to blood loss (chronic); N10 Acute pyelonephritis; Z20.822 Contact with and (suspected) exposure to COVID-19; Z87.442 Personal history of urinary calculi; Z98.84 Bariatric surgery status
CPT/HCPCS: 36415; 74176; 76775; 80048; 80053; 81001; 82248; 83605; 83690; 84702; 85007; 85025; 85027; 86850; 86900; 86901; 86923; 87040; 87086; 87088; 87186; 87635; 93005; 99285; J0696; J1956; J2270; J2405; P9016